=== PATIENT | female | born 1995 | race Caucasian/White ===

== ENCOUNTER 2018-04-17 03:51 | Emergency (ER) | payer SELFPAY ==
[~2018-04-17] VITALS: Ht 160 cm; Wt 52.6 kg
[2018-04-17 04:00] VITALS: Ht 160 cm; Wt 52.6 kg
[2018-04-17 04:31] LABS: CALCIUM 8.6 mg/dL (8.5-10.1); CARBON DIOXIDE 23.6 mmol/L (21-32); CHLORIDE SERUM 105 mmol/L (98-107); CREATININE SERUM 0.9 mg/dL (0.6-1.0); GFR1 > 60 mL/min; GLUCOSE SERUM 115 mg/dL (74-106); POTASSIUM SERUM 3.5 mmol/L (3.5-5.1); SODIUM SERUM 142 mmol/L (136-145)
[2018-04-17 04:35] LABS: PLATELET COUNT 283 x10^3mcL (130-400); RED CELL DISTRIBUTION WIDTH 12.5 % (11.5-14.5)
[2018-04-17 04:37] LABS: ALBUMIN 4.8 g/dL (3.4-5.0); ALKALINE PHOSPHATASE 52 U/L (46-116); ALT/SGPT 18 U/L (14-59); AST/SGOT 15 U/L (15-37); BILIRUBIN TOTAL 0.2 mg/dL (0.20-1.00); LIPASE 60 IU/L (73-393)
[2018-04-17 04:41] LABS: TOTAL PROTEIN, SERUM 8.6 g/dL (6.4-8.2)
[2018-04-17 04:46] LABS: BASOPHIL % 0 % (0-2)
[2018-04-17 06:48] VITALS: BP 106/60
== END 2018-04-17 06:48 | disposition home or self-care (01) ==
LOC: ED 03:51
PROVIDERS: Emergency Medicine
DX: K52.9 Noninfective gastroenteritis and colitis, unspecified (principal)
CPT/HCPCS: J2270; J2405; J7030